=== PATIENT | male | born 1965 | race Caucasian/White ===

== ENCOUNTER 2016-08-21 09:29 | Observation (INO) | payer OTHER ==
[2016-08-21] MEDS ORDERED: ASPIRIN 81 MG CHEWABLE TABLETS PO ONE (09:44)
[2016-08-21] MEDS ORDERED: ASPIRIN 81 MG CHEWABLE TABLETS ONE (09:52)
[2016-08-21 09:54] VITALS: BMI 29.9
--- NOTE | 2016-08-21 09:55 | PDOC ---
History of Present Illness - General Chief Complaint: Chest Pain Stated Complaint: SOB & CHEST PAIN X 3 DAYS Time Seen by Provider: 08/21/16 09:31 History Source: Patient Exam Limitations: No Limitations - History of Present Illness Initial Comments: 08/21/16 09:51 51 year old male c/ pmh multiple trauma 25 foot fall several years ago, umbilical and inguinal hernia repair p/w chest pain and SOB. The patient reports that he was having SOB at rest and at exertion. States he feels more SOB than usual. Denies orthopnea but reports difficult sleeping. Last week, did have a chest cold that resolved. Denies fevers, chills, cough, vomiting. Does endorse occasional loose stooling in the last several days. Has been having intermittent several seconds to minutes of left sided sharp chest pain with no radiation. the chest pain is NOT exertional but the SOB is. States no inciting or exacerbating factors for the chest pain. PT does have a very strong family history of MIs with multiple people including his father with LA in early 50s. Patient has not visited a physician in the last 2 years. Last stress test many years ago which he thinks it was normal. Past History - Past Medical History Allergies/Adverse Reactions: Allergies Allergy/AdvReac Type Severity Reaction Status Date / Time No Known Allergies Allergy Verified 08/21/16 09:37 Home Medications: Ambulatory Orders NK [No Known Home Medication] 08/21/16 Other medical history: FALL 25 FT WITH SHOULDER, RIB, BACK , KNEE TRAUMA - Psycho/Social/Smoking Cessation Hx Anxiety: No Suicidal Ideation: No Smoking History: Never smoked Hx Alcohol Use: No Drug/Substance Use Hx: No Substance Use Type: None Review of Systems - Review of Systems Able to Perform ROS?: Yes Comments:: 08/21/16 09:53 GENERAL/CONSTITUTIONAL: No fever, weakness. HEAD, EYES, EARS, NOSE AND THROAT: No change in vision. No ear pain or discharge. No sore throat. CARDIOVASCULAR: + chest pain RESPIRATORY: +shortness of breath GASTROINTESTINAL: No abdominal pain, nausea, vomiting, diarrhea, or decreased PO intolerance. GENITOURINARY: No dysuria, frequency, or change in urination. MUSCULOSKELETAL: No joint or muscle swelling or pain. No neck or back pain. SKIN: No rash NEUROLOGIC: No headache, vertigo, loss of consciousness, or change in strength/ sensation. ENDOCRINE: No increased thirst. No abnormal weight change. HEMATOLOGIC/LYMPHATIC: No anemia, easy bleeding, or history of blood clots. ALLERGIC/IMMUNOLOGIC: No hives or skin allergy. *Physical Exam - Vital Signs Last Vital Signs Temp Pulse Resp BP Pulse Ox 97.3 F L 66 17 172/114 100 08/21/16 09:30 08/21/16 09:30 08/21/16 09:30 08/21/16 09:30 08/21/16 09:30 - Physical Exam Comments: 08/21/16 09:54 GENERAL: Awake, alert, and fully oriented, in no acute distress. HEAD: No signs of trauma EYES: PERRLA, EOMI, sclera anicteric, conjunctiva clear ENT: Auricles normal inspection, hearing grossly normal, nares patent, oropharynx clear without exudates. NECK: Normal ROM, supple, no lymphadenopathy, JVD, or masses LUNGS: Breath sounds equal, clear to auscultation bilaterally. No wheezes, and no crackles HEART: Regular rate and rhythm, normal S1 and S2, no murmurs, rubs or gallops ABDOMEN: Soft, nontender, normoactive bowel sounds. No guarding, no rebound. No masses EXTREMITIES: Normal range of motion, no edema. No clubbing or cyanosis. No cords, erythema, or tenderness NEUROLOGICAL: Cranial nerves II through XII grossly intact. Normal speech, normal gait SKIN: Warm, Dry, normal turgor, no rashes or lesions noted. Heart Score/ECG Review - History History: Moderately suspicious - Electrocardiogram EKG: Normal - Age Age: 45-65 - Risk Factors Risk Factors Heart Score: Yes Positive family hx of cardiac disease Based on the list above the patient has:: 1-2 risk factors - Troponin Troponin: </= normal limit - Score Heart Score - Total: 3 #1 ECG reviewed & interpreted by me at: 09:50 08/21/16 09:54 NSR 68, T wave flat III, no std/miya, normal axis, normal intervals, no twi, QTC 433 msec ED Treatment Course - LABORATORY CBC & Chemistry Diagram: 08/21/16 09:45 08/21/16 09:45 - RADIOLOGY Radiology Studies Ordered: Category Date Time Status CHEST PA & LAT [RAD] Stat Radiology 08/21/16 09:44 Ordered Medical Decision Making - Medical Decision Making 08/21/16 09:50 08/21/16 09:55 Vital Signs Temp Pulse Resp BP Pulse Ox 97.3 F L 66 17 172/114 100 08/21/16 09:30 08/21/16 09:30 08/21/16 09:30 08/21/16 09:30 08/21/16 09:30 Pt with strong family history of MIs with exertional SOB and SOB at rest, concerning for ACS/LA. Will send troponin, chest xray, give aspirin. Will need cardiac workup. Will also send d-dimer, as pt is low risk for PE. Ultimately, I believe patient should be admitted for further cardiac workup. 08/21/16 11:33 CBC, BMP 08/21/16 09:45 08/21/16 09:45 CMP Sodium 135 mmol/L (136-145) L 08/21/16 09:45 Potassium 4.2 mmol/L (3.5-5.1) 08/21/16 09:45 Chloride 104 mmol/L (98-107) 08/21/16 09:45 Carbon Dioxide 22 mmol/L (22-28) 08/21/16 09:45 Anion Gap 9 (8-16) 08/21/16 09:45 BUN 16 mg/dl (7-18) 08/21/16 09:45 Creatinine 1.1 mg/dl (0.6-1.3) 08/21/16 09:45 Creat Clearance w eGFR > 60 (>60) 08/21/16 09:45 Random Glucose 120 mg/dl (74-106) H 08/21/16 09:45 Calcium 9.1 mg/dl (8.4-10.2) 08/21/16 09:45 Total Bilirubin 0.6 mg/dl (0.2-1.0) 08/21/16 09:45 AST 29 U/L (10-42) 08/21/16 09:45 ALT 32 U/L (10-40) 08/21/16 09:45 Alkaline Phosphatase 35 U/L (32-92) 08/21/16 09:45 Creatine Kinase 211 IU/L (38-174) H 08/21/16 09:45 CK-MB (CK-2) 2.7 ng/ml (0.3-4.0) 08/21/16 09:45 CK-MB (CK-2) Rel Index 1.3 % (0.0-5.0) 08/21/16 09:45 Troponin I < 0.03 ng/ml (0.03-0.50) L 08/21/16 09:45 B-Natriuretic Peptide 27.00 pg/ml (5-125) 08/21/16 09:45 Total Protein 7.3 g/dl (6.4-8.3) 08/21/16 09:45 Albumin 4.1 g/dl (3.5-5.0) 08/21/16 09:45 Chest xray reviewed. Trop negative. d-dimer pending. Case discussed with DR. Robins. She accepts patient for tele observation. Requests cardiology on service, DR. Gan. Dr. Elvia roblero, awaiting phone call back. *DC/Admit/Observation/Transfer Diagnosis at time of Disposition: Shortness of breath - Discharge Dispostion Condition at time of disposition: Stable Admit: Yes
[2016-08-21 10:05] LABS: BASOPHIL 3.3 % (0-2.0); EOSINOPHIL 0.9 % (0-4.5); MCH 29.3 pg (25.7-33.7); MCHC 34.4 g/dl (32.0-35.9); MEAN CELL VOLUME 85.1 fl (80-96); MEAN PLT VOLUME 9.1 fl (7.5-11.1); NEUTROPHILS 75.2 % (42.8-82.8); PLATELET COUNT 158 K/MM3 (134-434); RDW 12.9 % (11.9-15.9); WHITE BLOOD COUNT 6.2 K/mm3 (4.0-10.8)
[2016-08-21 10:30] LABS: ALBUMIN 4.1 g/dl (3.5-5.0); ALK PHOS 35 U/L (32-92); ANION GAP 9 (8-16); BILIRUBIN,TOTAL 0.6 mg/dl (0.2-1.0); CALCIUM 9.1 mg/dl (8.4-10.2); CO2 22 mmol/L (22-28); COCKROFT - GAULT 107.12; CPK(DFH) 211 IU/L (38-174); CREATININE 1.1 mg/dl (0.6-1.3); GLUCOSE,RANDOM 120 mg/dl (74-106); SGOT/AST 29 U/L (10-42); SGPT/ALT 32 U/L (10-40); TOT PROT 7.3 g/dl (6.4-8.3)
[2016-08-21 10:48] LABS: TROPONIN I (DFP) < 0.03 ng/ml (0.03-0.50)
[2016-08-21 11:06] LABS: CK MB 2.7 ng/ml (0.3-4.0)
[2016-08-21 11:43] LABS: ACTIVATED PTT 31.8 SECONDS (24.0-38.9); INR 1.04 (0.82-1.09); PROTHROMBIN TIME (PATIENT) 11.5 SEC (10.2-13.0)
--- NOTE | 2016-08-21 16:34 | CONSULT ---
Consult Consult Specialty:: Cardiology Referred by:: Dr Low Reason for Consultation:: ACOSTA and ANGIE - History of Present Illness Chief Complaint: As above History of Present Illness: 51 yo male with no documented CAD risk factors except fro fam hx CAD (though not premature -> father with ND at 60 an d not first-degree ->uncles with ND in their 50s), past stress test because of family hx (last one 4-[address] Roach (all ok), here with months of exertional dyspnea and chest pressure -. at rest mostly. The symptom of chest pressure has been short-lived (1-2 min), but since this past Sunday., has been longer (5-10 minutes). Today, he woke up at 5 with it and it lasted pretty much all day -. he denies associated symptoms, but does get heartburn for which he takes antiacids at times and does admit to a lot of stress lately. He also put on about 10 lbs in a few months He denies palpitations or dizziness. He has varicose veins and gets cramps at night. He denies sign KADY, or PND/orthopnea. Lastly, over the last month, he has been having watery BMs, intermittently - Past Surgical History Past Surgical History: Yes: Tonsillectomy Additional Surgical History: abd hernia repair and inguinal hernia repair in 2000 - Alcohol/Substance Use Hx Alcohol Use: Yes (rarely) - Smoking History Smoking history: Never smoked - Social History Usual Living Arrangement: With Spouse Occupation: Assistant Teacher [employer] Home Medications - Allergies Allergies/Adverse Reactions: Allergies Allergy/AdvReac Type Severity Reaction Status Date / Time No Known Allergies Allergy Verified 08/21/16 09:37 - Home Medications Home Medications: Ambulatory Orders NK [No Known Home Medication] 08/21/16 Family Disease History - Family Disease History Family Disease History: Heart Disease: Father (ND at 60) Other Family History: 2 sons Review of Systems - Review of Systems Constitutional: denies: No Symptoms, Chills, Diaphoresis, Fever, Lethargy, Loss of Appetite, Malaise, Night Sweats, Unintentional Wgt. Loss, Weakness, Other Eyes: denies: No Symptoms, Blind Spots, Blurred Vision, Double Vision, Eye Pain , Floaters, Photophobia, Recent Change in Vision, Other Cardiovascular: reports: Chest Pain Respiratory: reports: SOB on Exertion Gastrointestinal: reports: Diarrhea Breasts: denies: No Symptoms Reported, See HPI, Breast Implants, Discharge from Nipple, Lumps, Pain, Skin Changes, Other Musculoskeletal: reports: Joint Swelling (knees), Muscle Cramps (at night) Neurological: denies: No Symptoms, Change in LOC, Change in Speech, Confusion, Dizziness, Headache, Incoordination, Numbness, Parasthesia, Pre-Existing Deficit , Seizure, Syncope, Tremors, Unsteady Gait, Weakness, Other Endocrine: denies: No Symptoms, Excessive Sweating, Flushing, Increased Hunger, Increased Thirst, Intolerance to Cold, Intolerance to Heat, Unexplained Weight Gain, Unexplained Weight Loss, Other Psychiatric: reports: Other (stressed lately) Physical Exam Vital Signs: Vital Signs Temperature 97.6 F 08/21/16 14:57 Pulse Rate 54 L 08/21/16 14:57 Respiratory Rate 19 08/21/16 14:57 Blood Pressure 143/94 08/21/16 14:57 O2 Sat by Pulse Oximetry (%) 99 08/21/16 14:57 Constitutional: Yes: No Distress Eyes: Yes: Conjunctiva Clear HENT: Yes: Atraumatic Neck: Yes: Supple Cardiovascular: Yes: Regular Rate and Rhythm. No: Murmur Respiratory: Yes: CTA Bilaterally Gastrointestinal: Yes: Normal Bowel Sounds, Soft. No: Tenderness Extremities: Yes: Other (warm) Peripheral Pulses WNL: Yes Neurological: Yes: Alert, Oriented Psychiatric: Yes: Alert, Oriented Imaging - Results Chest X-ray: Report Reviewed, Image Reviewed EKG: Report Reviewed, Image Reviewed (SR) Assessment/Plan 51 yo male with the above history, here with ACOSTA and chest pressure at rest -. lasting longer lately, and today, pretty much the whole day His EKG is normal and CE neg -. pretty reassuring since he has been having pain all day The differential includes GERD, stress BP high with no prior hx, but pt doesn't go to doctors regularly. In addition , it may be partly driven by his stress level Rec: Tele with serial Miguelito and EKGs [id number] /daily Torpol XL 25/d -. first dose now Lisinopril 10 daily Fasting lipids, TFTS in AM If everything negative and BP acceptable -. may be d/rex in AM with plan for ouytt evaluation Thanks!
[2016-08-21] MEDS: LISINOPRIL 10 MG TABLET (FP) PO SCH (17:03)
[2016-08-21] MEDS: METOPROLOL SUCCINATE 25 MG TAB.SR.24H (FP) PO SCH (17:03)
--- NOTE | 2016-08-21 19:03 | HP ---
Admitting History and Physical - Admission Chief Complaint: Increase svevrity and length of Chest Pain x 1 day pre admission History of Present Illness: 51 M w/o Hx HTN, HLD, DM, GI Dis reports Imtermittent sharp Lt Lat Sternal C Pain w/o assoc sxs x ~2-3 momths W/O radiat . SOB, ACOSTA. Pt has not seen a docypr !>1 yr. Recently he did experience Lt Chest Pressure w assoc SOB and ACOSTA - even getting out of bed . Re[prts saw Dentist Last Wkend nad BP was ~110/80. Tosay pt fell ill and weak , went to work and experienced Lt CHST pressuur (09/06 ) w SOB/ACOSTA but No other assoc sxs. H drived home from [place] , then Son brought to ED. History Source: Patient Limitations to Obtaining History: No Limitations - Past Surgical History Past Surgical History: Yes: Hernia Repair ([facility]entral and ? 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 Home Medications - Allergies Allergies/Adverse Reactions: Allergies Allergy/AdvReac Type Severity Reaction Status Date / Time No Known Allergies Allergy Verified 08/21/16 09:37 - Home Medications Home Medications: Ambulatory Orders NK [No Known Home Medication] 08/21/16 Family Disease History - Family Disease History Family Disease History: Heart Disease: Father (AK at 60) Other Family History: 2 sons Review of Systems - Review of Systems Constitutional: reports: Other (fatigue) Eyes: reports: No Symptoms Neck: reports: No Symptoms Cardiovascular: reports: Edema, Shortness of Breath, Other (ACOSTA) Respiratory: reports: SOB, SOB on Exertion Gastrointestinal: reports: No Symptoms Genitourinary: reports: No Symptoms Breasts: reports: No Symptoms Reported Musculoskeletal: reports: No Symptoms Integumentary: reports: No Symptoms Neurological: reports: No Symptoms Endocrine: reports: No Symptoms Hematology/Lymphatic: reports: No Symptoms Psychiatric: reports: No Symptoms Pain Intensity: 2 (NOW) Physical Examination Vital Signs: Vital Signs Temperature 97.6 F 08/21/16 14:57 Pulse Rate 54 L 08/21/16 14:57 Respiratory Rate 19 08/21/16 14:57 Blood Pressure 143/94 08/21/16 14:57 O2 Sat by Pulse Oximetry (%) 99 08/21/16 14:57 Constitutional: Yes: Calm Neck: Yes: Supple, Trachea Midline Cardiovascular: Yes: Regular Rate and Rhythm, Bruit (no), JVD (no) Respiratory: Yes: Regular, CTA Bilaterally Gastrointestinal: Yes: Normal Bowel Sounds, Abdomen, Obese ...Rectal Exam: Yes: Deferred Renal/: Yes: WNL Musculoskeletal: Yes: WNL Extremities: Yes: WNL Edema: No Peripheral Pulses: Left Radial: 2+, Right Radial: 2+, Left Doralis Pedis: 2+, Right Dorsalis Pedis: 2+ Integumentary: Yes: WNL Neurological: Yes: WNL, Alert, Oriented ...Motor Strength: WNL Psychiatric: Yes: Alert, Oriented Labs: Laboratory Last Values WBC 6.2 K/mm3 (4.0-10.8) 08/21/16 09:45 RBC 5.67 M/mm3 (4.00-5.60) H 08/21/16 09:45 Hgb 16.6 GM/dl (11.7-16.9) 08/21/16 09:45 Hct 48.2 % (35.4-49) 08/21/16 09:45 MCV 85.1 fl (80-96) 08/21/16 09:45 MCHC 34.4 g/dl (32.0-35.9) 08/21/16 09:45 RDW 12.9 % (11.9-15.9) 08/21/16 09:45 Plt Count 158 K/MM3 (134-434) 08/21/16 09:45 MPV 9.1 fl (7.5-11.1) 08/21/16 09:45 Neutrophils % 75.2 % (42.8-82.8) 08/21/16 09:45 Lymphocytes % 14.2 % (8-40) 08/21/16 09:45 Monocytes % 6.4 % (3.8-10.2) 08/21/16 09:45 Eosinophils % 0.9 % (0-4.5) 08/21/16 09:45 Basophils % 3.3 % (0-2.0) H 08/21/16 09:45 INR 1.04 (0.82-1.09) 08/21/16 09:45 PTT (Actin FS) 31.8 SECONDS (24.0-38.9) 08/21/16 09:45 D-Dimer 218 ng/ml (<200-235) 08/21/16 09:45 Sodium 135 mmol/L (136-145) L 08/21/16 09:45 Potassium 4.2 mmol/L (3.5-5.1) 08/21/16 09:45 Chloride 104 mmol/L (98-107) 08/21/16 09:45 Carbon Dioxide 22 mmol/L (22-28) 08/21/16 09:45 Anion Gap 9 (8-16) 08/21/16 09:45 BUN 16 mg/dl (7-18) 08/21/16 09:45 Creatinine 1.1 mg/dl (0.6-1.3) 08/21/16 09:45 Creat Clearance w eGFR > 60 (>60) 08/21/16 09:45 Random Glucose 120 mg/dl (74-106) H 08/21/16 09:45 Calcium 9.1 mg/dl (8.4-10.2) 08/21/16 09:45 Total Bilirubin 0.6 mg/dl (0.2-1.0) 08/21/16 09:45 AST 29 U/L (10-42) 08/21/16 09:45 ALT 32 U/L (10-40) 08/21/16 09:45 Alkaline Phosphatase 35 U/L (32-92) 08/21/16 09:45 Creatine Kinase 211 IU/L (38-174) H 08/21/16 09:45 CK-MB (CK-2) 2.7 ng/ml (0.3-4.0) 08/21/16 09:45 CK-MB (CK-2) Rel Index 1.3 % (0.0-5.0) 08/21/16 09:45 Troponin I < 0.03 ng/ml (0.03-0.50) L 08/21/16 09:45 B-Natriuretic Peptide 27.00 pg/ml (5-125) 08/21/16 09:45 Total Protein 7.3 g/dl (6.4-8.3) 08/21/16 09:45 Albumin 4.1 g/dl (3.5-5.0) 08/21/16 09:45 Imaging - Results Chest X-ray: Report Reviewed (Neg) EKG: Other (see Cardio note) Problem List - Problems (1) Chest pain Assessment/Plan: No Prior Hx CAD Risk X Fa Hx CAD, Male Sex and Obesity. New Onset HTN in This Admission. Seen by Cardiology; Michelle ASA Started .Possibly DC Home IF cleared By Cardio Code(s): R07.9 - CHEST PAIN, UNSPECIFIED (2) Hypertension Assessment/Plan: [place] upon arrival at ED, improved w BB and MARCIA inhib Code(s): I10 - ESSENTIAL (PRIMARY) HYPERTENSION (3) BMI 30.0-30.9,adult Assessment/Plan: encouraged exercise when Cardiac eval completed and diet to lower wt Code(s): Z68.30 - BODY MASS INDEX (BMI) 30.0-30.9, ADULT
[2016-08-21] MEDS ORDERED: MAG HYDROX/AL HYDROX/SIMETH 30 ML UNIT-DOSE CUP PO ONE (21:46)
[2016-08-21] MEDS: HEPARIN NA (PORCINE) 5,000 UNITS/ML 1ML VIAL SQ SCH (21:52)
[2016-08-22 08:58] LABS: MAGNESIUM 2.1 mg/dL (1.8-2.4)
[2016-08-22] MEDS: METOPROLOL SUCCINATE 25 MG TAB.SR.24H (FP) PO SCH (09:23)
[2016-08-22] MEDS: LISINOPRIL 10 MG TABLET (FP) PO SCH (09:23)
[2016-08-22] MEDS: HEPARIN NA (PORCINE) 5,000 UNITS/ML 1ML VIAL SQ SCH (09:24)
[2016-08-22] MEDS ORDERED: ASPIRIN COATED 81 MG TABLET.EC PO SCH (10:00)
[2016-08-22 14:21] VITALS: BP 114/75; PULSE 59; TEMP 98.4
[2016-08-23 10:33] LABS: THYROID STIMULATING HORMONE 1.23 uIU/ml (0.358-3.74)
--- NOTE | 2016-08-24 13:02 | EKG ---
Test Reason : Blood Pressure : / mmHG Vent. Rate : 068 BPM Atrial Rate : 068 BPM P-R Int : 158 ms QRS Dur : 092 ms QT Int : 408 ms P-R-T Axes : 034 047 032 degrees QTc Int : 433 ms NORMAL SINUS RHYTHM NORMAL ECG NO PREVIOUS ECGS AVAILABLE Confirmed by GHULAM WORLEY MD ([id number]) on 08/24/2016 1:01:51 PM Referred By: FITO Confirmed By:GHULAM WORLEY MD
== END 2016-08-22 14:55 | disposition home or self-care (01) ==
LOC: FER 09:29 → FM/S 12:17
PROC: 3E013GC Introduction of Other Therapeutic Substance into Subcutaneous Tissue, Percutaneous Approach (ICD-10-PCS; principal; 2016-08-21)
DX: R07.9 Chest pain, unspecified (principal); I10 Essential (primary) hypertension; Z68.30 Body mass index [BMI] 30.0-30.9, adult; Z82.49 Family history of ischemic heart disease and other diseases of the circulatory system
CPT/HCPCS: 36415; 71020-TC; 80053; 82550; 82553; 83735; 83880; 84443; 84484; 85025; 85379; 85610; 85730; 93005; 99285-25; G0378; J1644

== ENCOUNTER 2017-05-31 12:13 | Emergency (ER) | payer OTHER ==
[2017-05-31 12:27] VITALS: BP 127/101; PULSE 78; TEMP 98.4; BMI 29.9
[2017-05-31] MEDS ORDERED: IBUPROFEN 600 MG TABLET (FP) PO ONE (14:18)
[2017-05-31] MEDS ORDERED: IBUPROFEN 400 MG TABLET (FP) PO ONE (14:20)
--- NOTE | 2017-05-31 14:22 | PDOC ---
History of Present Illness - General Chief Complaint: Injury Stated Complaint: RT KNEE PAIN Time Seen by Provider: 05/31/17 14:12 History Source: Patient Exam Limitations: No Limitations - History of Present Illness Initial Comments: 05/31/17 14:19 52 yr male with pain to the right knee behind the knee sustained yesterday after injuring knee at work. Pt states his foot got stuck and he hyperextended his knee. Pt did not take any pain meds [employer]. Occurred: reports: yesterday Severity: Yes: moderate Lower Extremity Pain Location: right: knee Method of Injury: Yes: twisted Past History - Past Medical History Allergies/Adverse Reactions: Allergies Allergy/AdvReac Type Severity Reaction Status Date / Time No Known Allergies Allergy Verified 05/31/17 12:24 Home Medications: Ambulatory Orders Naproxen [Naprosyn -] 500 mg PO BID PRN #14 tablet 05/31/17 COPD: No HTN: Yes (NOT ON MEDS) - Surgical History Abdominal Surgery: Yes (umbilical/inguinal hernia) - Suicide/Smoking/Psychosocial Hx Smoking History: Never smoked Information on smoking cessation initiated: No Hx Alcohol Use: Yes (rarely) Drug/Substance Use Hx: No Substance Use Type: None *Physical Exam - Vital Signs Last Vital Signs Temp Pulse Resp BP Pulse Ox 98.4 F 78 18 127/101 100 05/31/17 12:24 05/31/17 12:24 05/31/17 12:24 05/31/17 12:24 05/31/17 12:24 - Physical Exam General Appearance: Yes: Nourished, Appropriately Dressed HEENT: positive: EOMI, JORY Musculoskeletal: positive: Normal Inspection Extremity: positive: Normal Capillary Refill, Normal Inspection, Tender ( posterior knee distal hamstring, no swelling no bony tenderness, FROM of the knee limited with extension due to pain ) Integumentary: positive: Normal Color, Dry, Warm Neurologic: positive: Fully Oriented, Alert, Normal Mood/Affect, Normal Response , Motor Strength 5/5 ED Treatment Course - RADIOLOGY Radiology Studies Ordered: Category Date Time Status DUPLEX VASCUL US-1 LEG [US] Stat Ultrasound 05/31/17 14:18 Ordered Medical Decision Making - Medical Decision Making 05/31/17 14:20 cc: hyperextended his knee has pain to the right knee pt arrived with crutches. will give motrin and get US of the lower leg. pt has appointment next week with his orthopedist. 05/31/17 14:52 *DC/Admit/Observation/Transfer Diagnosis at time of Disposition: Strain of knee Qualifiers: Encounter type: initial encounter Laterality: right Qualified Code(s): S86.911A - Strain of unspecified muscle(s) and tendon(s) at lower leg level, right leg, initial encounter - Discharge Dispostion Disposition: HOME Condition at time of disposition: Good - Prescriptions Prescriptions: Naproxen [Naprosyn -] 500 mg PO BID PRN #14 tablet PRN Reason: Pain - Referrals - Patient Instructions Additional Instructions: please take naprosyn as prescribed follow with your orthopedist next week as planned use the crutches to ambulate use the knee immobilizer while awake remove to sleep and bathe - Post Discharge Activity
== END 2017-05-31 15:16 | disposition home or self-care (01) ==
LOC: JERFT 12:13
DX: S86.811A Strain of other muscle(s) and tendon(s) at lower leg level, right leg, initial encounter (principal); X50.1XXA Overexertion from prolonged static or awkward postures, initial encounter; Y93.H3 Activity, building and construction; Y92.69 Other specified industrial and construction area as the place of occurrence of the external cause; Y99.0 Civilian activity done for income or pay
CPT/HCPCS: 93971-TC; 99281-25

== ENCOUNTER 2019-06-24 14:37 | Emergency (ER) | payer OTHER ==
[2019-06-24 14:49] VITALS: BP 167/108; PULSE 72; TEMP 98.4; BMI 30.4
--- NOTE | 2019-06-24 16:09 | PDOC ---
Documentation entered by Caroline Trujillo SCRIBE, acting as scribe for Jos Narvaez MD. Jos Narvaez MD: This documentation has been prepared by the scribeRonnie Maria, SCRIBE, under my direction and personally reviewed by me in its entirety. I confirm that the documentation accurately reflects all work, treatment, procedures, and medical decision making performed by me. History of Present Illness - General Chief Complaint: Injury Stated Complaint: INJURED RIGHT ANKLE AT WORK Time Seen by Provider: 06/24/19 14:58 - History of Present Illness Initial Comments: 06/24/19 16:12 The patient is a 50 year old male with a significant past medical history of HTN , HLD, and DM who presents to the emergency room for an injury to his right ankle. 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 He reports being unable to bear any weight prompting him to the ER. He denies any trauma to his head. Denies loss of consciousness. Denies any other injuries. Allergies: NKDA Past surgical history: Umbilical hernia Social history: Nonsmoker. Denies EtOH use and recreational drug use. Past History - Past Medical History Allergies/Adverse Reactions: Allergies Allergy/AdvReac Type Severity Reaction Status Date / Time No Known Allergies Allergy Verified 06/24/19 14:39 Home Medications: Ambulatory Orders NK [No Known Home Medication] 06/24/19 COPD: No HTN: Yes (NOT ON MEDS) - Surgical History Abdominal Surgery: Yes (umbilical/inguinal hernia) - Psycho Social/Smoking Cessation Hx Smoking History: Never smoked Information on smoking cessation initiated: No Hx Alcohol Use: No Drug/Substance Use Hx: No Substance Use Type: None Review of Systems - Review of Systems Able to Perform ROS?: Yes Comments:: 06/24/19 16:12 A complete review of 10 out of 10 review of systems is taken and is negative apart from what is previously mentioned below and in the HPI. *Physical Exam - Vital Signs Last Vital Signs Temp Pulse Resp BP Pulse Ox 98.4 F 72 16 167/108 H 98 06/24/19 14:38 06/24/19 14:38 06/24/19 14:38 06/24/19 14:38 06/24/19 14:38 - Physical Exam 06/24/19 16:09 Vitals: Triage Vital signs reviewed General Appearance: No acute distress, well nourished well developed, Head: Atraumatic, Extremities: Full range of motion to all extremities, no cyanosis, clubbing, or edema swelling and tenderness to palpation to the right medial malleolus neurovascular intact distally no upper leg or foot discomfort Skin: Warm and dry, no rashes or lesions, no rash, no petechiae Neuro: Strength intact to all extremities, sensation intact to all extremities , Psych: Normal mood, normal affect Medical Decision Making - Medical Decision Making 06/24/19 16:10 No acute fracture dislocation on x-ray Given pain with ambulation patient placed in Aircast and splint. Patient says he has an orthopedist he will follow-up with this week will give note for work Findings, the need for follow-up and strict return instructions discussed with patient. Discharge - Discharge Information Problems reviewed: Yes Clinical Impression/Diagnosis: Ankle sprain Qualifiers: Encounter type: initial encounter Involved ligament of ankle: deltoid ligament Laterality: right Qualified Code(s): S93.421A - Sprain of deltoid ligament of right ankle, initial encounter Condition: Stable Disposition: HOME - Admission No - Follow up/Referral - Patient Discharge Instructions Patient Printed Discharge Instructions: Ankle Sprain Additional Instructions: Avoid putting weight on ankle crutches at all times while ambulating. Rest, ice 20 minutes on 20 minutes off. [id number] Tylenol Motrin as directed on package. Follow-up with your primary care provider this week. Return to emergency department for any severe worsening symptoms or for any concerns. - Post Discharge Activity Work/Back to School Note: Back to Work
== END 2019-06-24 16:39 | disposition home or self-care (01) ==
LOC: FER 14:37
PROC: 2W3QX1Z Immobilization of Right Lower Leg using Splint (ICD-10-PCS; principal; 2019-06-24)
DX: S93.421A Sprain of deltoid ligament of right ankle, initial encounter (principal); X58.XXXA Exposure to other specified factors, initial encounter; Y93.89 Activity, other specified; Y92.89 Other specified places as the place of occurrence of the external cause; Y99.0 Civilian activity done for income or pay; I10 Essential (primary) hypertension; E78.5 Hyperlipidemia, unspecified; E11.9 Type 2 diabetes mellitus without complications
CPT/HCPCS: 73610-TC-RT-FY; 73630-TC-RT-FY; 99283-25